=== PATIENT | male | born 1975 | race Two or more races ===

== ENCOUNTER 2024-12-09 11:33 | Inpatient (IN) | payer OTHER ==
[~2024-12-09] VITALS: Ht 170.2 cm; Wt 119.7 kg
[2024-12-09 12:18] VITALS: BP 224/124; PULSE 114; RESP 18; TEMP 98.6; O2SAT 97
--- NOTE | 2024-12-09 12:22 | ED.PDOC ---
HPI (NEURO) HPI Comments 48 y.o male presents to the ED for a chief complaint of left sided facial droop that started 3 days ago. Patient reports possible insect bite on his left side, states he developed pain then but woke up with drooping today. Patient denies any focal weakness, numbness sensation, chest pain or SOB. Upon ED arrival, patient's blood pressure measured 224/124. Patient has no history of HTN or any other illnesses. Chief Complaint: Left Sided Weakness Time Seen by MD: 12:05 Reviewed Notes: Nurses Notes, Medications, Allergies Information Source: Patient Mode of Arrival: Ambulatory Severity: Moderate Headache Severity: None Timing: Days (3) Duration: Since onset Onset: At rest Circumstances: Spontaneous Symptoms: None History of: None Associated Signs and Symptoms: Other Past Medical History PAST MEDICAL HISTORY: Denies Surgical History: Denies all surgeries Family History Family History: Family hx of DM, Family hx of Cancer Social History Smoker: Cigarettes Alcohol: Denies ETOH Use Drugs: Denies Drug Use Lives In: Home Constitutional: denies: chills, diaphoresis, fatigue, fever, malaise, sweats, weakness, others EENTM: denies: blurred vision, double vision, ear bleeding, ear discharge, ear drainage, ear pain, ear ringing, eye pain, eye redness, hearing loss, mouth pain, mouth swelling, nasal discharge, nose bleeding, nose congestion, nose pain, photophobia, tearing, throat pain, throat swelling, voice changes, others Respiratory: denies: cough, hemoptysis, orthopnea, SOB at rest, shortness of breath, SOB with excertion, stridor, wheezing, others Cardiovascular: denies: chest pain, dizzy spells, diaphoresis, Dyspnea on exertion, edema, irregular heart beat, left arm pain, lightheadedness, palpitations, PND, syncope, others Gastrointestinal: denies: abdomen distended, abdominal pain, blood streaked bowels, constipated, diarrhea, dysphagia, difficulty swallowing, hematemesis, melena, nausea, poor appetite, poor fluid intake, rectal bleeding, rectal pain, vomiting, others Genitourinary: denies: burning, dysuria, flank pain, frequency, hematuria, incontinence, penile discharge, penile sore, pain, testicle pain, testicle swelling, urgency, others Neurological: reports: others (left sided facial droop ); denies: dizziness, fainting, headache, left sided numbness, left sided weakness, numbness, paresthesia, pre-existing deficit, right sided numbness, right sided weakness, seizure, speech problems, tingling, tremors, weakness Musculoskeletal: denies: back pain, gout, joint pain, joint swelling, muscle pain, muscle stiffness, neck pain, others Integumetry: denies: bruises, change in color, change in hair/nails, dryness, laceration, lesions, lumps, rash, wounds, others Allergic/Immunocompromised: denies: Difficulty Healing, Frequent Infections, Hives, Itching, others Hematologic/Lymphatic: denies: anemia, blood clots, easy bleeding, easy bruising, swollen glands, others Endocrine: denies: excessive hunger, excessive sweating, excessive thirst, excessive urination, flushing, intolerance to cold, intolerance to heat, unexplained weight gain, unexplained weight loss, others Psychiatric: denies: anxiety, bipolar disorder, depression, hopeless, panic disorder, schizophrenia, sleepless, suicidal, others All Other Systems: Reviewed and Negative Physical Exam General Appearance: Moderate Distress HEENT: Normal ENT Inspection, Pharynx Normal, TMs Normal Neck: Full Range of Motion, Non-Tender, Normal, Normal Inspection Respiratory: Chest Non-Tender, Lungs Clear, No Accessory Muscle Use, No Respiratory Distress, Normal Breath Sounds Cardiovascular: No Edema, No JVD, No Murmur, No Gallop, Normal Peripheral Pulses, Regular Rate/Rhythm Breast Exam: Deferred Gastrointestinal: No Organomegaly, Non Tender, No Pulsatile Mass, Normal Bowel Sounds, Soft Genitalia: Deferred Pelvic: Deferred Rectal: Deferred Extremities: No calf tenderness, Normal capillary refill, Normal inspection, Normal range of motion, Non-tender, No pedal edema Musculoskeletal : Apperance: Normal Neurologic: Alert, Facial Droop (Left-sided facial droop), Normal Affect, Normal Mood, No Sensory Deficits Cerebellar Function: Normal Reflexes: Normal Skin: Dry, Normal Color, Warm Lymphatic: No Adenopathy Was a procedure done? Was a procedure done?: No Differential Diagnosis (SZ) CVA: Bernabe's Palsy, CVA, Electrolyte Imbalance, Encephalopathy, TIA X-Ray, Labs, Meds, VS Vital Signs Date Time Temp Pulse Resp B/P (MAP) Pulse Ox O2 Delivery O2 Flow Rate FiO2 7/7/25 13:07 224/142 12/09/24 12:18 98.6 114 18 224/124 (157) 97 98.6 Lab Test 12/09/24 14:04 12/09/24 13:20 Range/Units Urine Color Pending Urine Clarity Pending Urine pH Pending Urine Specific [place] Pending Urine Protein Pending Urine Ketones Pending Urine Blood Pending Urine Nitrite Pending Urine Bilirubin Pending Urine Urobilinogen Pending Urine Leukocyte Esterase Pending Urine RBC Pending Urine Microscopic WBC Pending Urine Squamous Epithelial Cells Pending Urine Bacteria Pending Urine Glucose Pending White Blood Count 12.7 H 4.4-10.8 10^3/uL Red Blood Count 6.27 H 4.5-5.90 10^6/uL Hemoglobin 18.3 H 13.5-17.5 g/dL Hematocrit 53.0 41.0-53.0 % Mean Corpuscular Volume 84.5 80.0-100.0 fL Mean Corpuscular Hemoglobin 29.1 28.0-32.0 pg Mean Corpuscular Hemoglobin Concent 34.5 32.0-36.0 g/dL Red Cell Distribution Width 13.1 11.8-14.3 % Platelet Count 338 140-450 10^3/uL Mean Platelet Volume 7.6 6.9-10.8 fL Neutrophils (%) (Auto) 69.4 37.0-80.0 % Lymphocytes (%) (Auto) 23.2 10.0-50.0 % Monocytes (%) (Auto) 5.5 0.0-12.0 % Eosinophils (%) (Auto) 1.2 0.0-7.0 % Basophils (%) (Auto) 0.7 0.0-2.0 % Neutrophils # (Auto) 8.8 H 1.6-8.6 10 ^3/uL Lymphocytes # (Auto) 2.9 0.4-5.4 10 ^3/uL Monocytes # (Auto) 0.7 0-1.3 10 ^3/uL Eosinophils # (Auto) 0.2 0-0.8 10 ^3/uL Basophils # (Auto) 0.1 0-0.2 10 ^3/uL Nucleated Red Blood Cells 0.1 % Sodium Level 141 136-145 mmol/L Potassium Level 3.4 L 3.5-5.1 mmol/L Chloride Level 103 98-107 mmol/L Carbon Dioxide Level 29 20-31 mmol/L Anion Gap 9 5-15 Blood Urea Nitrogen 12 9-23 mg/dL Creatinine 1.21 0.700-1.30 mg/dL Glomerular Filtration Rate Calc 74 >90 mL/min BUN/Creatinine Ratio 9.9 L 10.0-20.0 Serum Glucose 122 H 74-106 mg/dL Calcium Level 9.9 8.7-10.4 mg/dL Current Medications Medications (Trade) Dose Ordered Sig/Beverly Route Start Time Stop Time Status Last Admin Clonidine HCl (Catapres Tablet) 0.2 mg ONCE ONCE PO 12/09/24 12:15 12/09/24 12:16 DC 12/09/24 13:07 CLINICAL INFORMATION: Male; left facial droop. IMPRESSION: No CT evidence of acute intracranial abnormality. The patient's CBC shows an elevated white blood cell count of 12.7 The rest of the CBC is within normal limits The chemistry panel is within normal limits. The patient was given clonidine 0.2 mg by mouth for the elevated blood pressure The patient is still having increased blood pressure so the patient is now being given hydralazine IV push The patient is a [facility] patient We did contact the because the patient is still symptomatic There has been given us authorization to admit the patient The authorization #[id number] The diagnosis is hypertensive crisis Images Reviewed?: Images reviewed and evaluated by me Time of 1ST Reevaluation: 12:22 Reevaluation 1ST: Unchanged Patient Education/Counseling: Diagnosis, Treatment, Prognosis Family Education/Counseling: No Family Present Departure 1 Departure Time of Disposition: 15:40 Impression: Primary Impression: Hypertensive crisis Additional Impression: Bernabe's palsy Disposition: 09 ADMITTED INPATIENT Admit to: [facility] Condition: Fair Critical Care Note Critical Care Time?: Yes (45 min-critical care time only) Stability Stability form required: Yes Unstable for transfer: Telemetry monitoring (Telemetry monitoring required), ED Physician Assesment (Clinical assesment) Heart Score Heart Score: Heart Score Response (Comments) Value History Moderate Suspicious 1 EKG Normal 0 Age 45-64 1 Risk Factors No known risk factors 0 Troponin N/A 0 Total 2 I personally scribed for DAGOBERTO SOLORZANO MD ([email or web address]) on 12/09/24 at 12:22. Electronically submitted by Sandee Calderon ([facility]). I personally scribed for DAGOBERTO SOLORZANO MD ([email or web address]) on 12/09/24 at 13:05. Electronically submitted by Sandee Calderon ([facility]). DAGOBERTO SOLORZANO MD Dec 09, 2024 12:22
--- NOTE | 2024-12-09 12:47 | DVH ---
CLINICAL INFORMATION: Male; left facial droop. TECHNIQUE: Axial imaging was obtained through the brain without contrast. Coronal and sagittal reform atted images were obtained, reviewed, and stored. Images were reviewed in brain and bone windows. Al l CT scans at this medical facility are performed using dose modulation techniques as appropriate to a performed exam including the following: Automated exposure control was utilized; adjustment of the MA and/or KV according to patient size; and use of iterative reconstruction technique. CTDIvol = 61.5 mGy DLP = 1107.4 mGy-cm COMPARISON: None FINDINGS: There is no acute intracranial hemorrhage. No mass effect or midline shift. The ventricles and sulci are within normal limits in size for age. Basal cisterns are patent. The calvarium is unre markable. Paranasal sinuses and mastoid air cells are clear. IMPRESSION: No CT evidence of acute intracranial abnormality.
[2024-12-09 13:30] LABS: Hematocrit 53.0 % (41.0-53.0); Hemoglobin 18.3 g/dL (13.5-17.5); Mean Corpuscular Hemoglobin 29.1 pg (28.0-32.0); Mean Corpuscular Volume 84.5 fL (80.0-100.0); Nucleated Red Blood Cells % 0.1 %
[2024-12-09 13:45] LABS: Chloride 103 mmol/L (98-107); Sodium 141 mmol/L (136-145)
[2024-12-09 13:46] LABS: Anion Gap 9 (5-15); Calcium 9.9 mg/dL (8.7-10.4); Carbon Dioxide 29 mmol/L (20-31)
[2024-12-09 13:48] LABS: Potassium 3.4 mmol/L (3.5-5.1)
[2024-12-09 13:51] LABS: BUN/Creatinine Ratio 9.9 (10.0-20.0); Blood Urea Nitrogen 12 mg/dL (9-23)
[2024-12-09 13:53] LABS: Glucose 122 mg/dL (74-106)
[2024-12-09] MEDS ORDERED: methylPREDNISolone SOD SUCC 125 MG/2 ML VL IV ONE (14:15)
[2024-12-09] MEDS ORDERED: hydrALAZINE HCL 20 MG/ML VL IV ONE (14:15)
[2024-12-09 15:41] LABS: Urine Protein, UAD 1+ (Negative)
[2024-12-09] MEDS ORDERED: ONDANSETRON HCL 4 MG/2 ML VIAL IV PRN (17:30)
[2024-12-09] MEDS ORDERED: ACETAMINOPHEN 325 MG TAB PO PRN (17:30)
[2024-12-09] MEDS ORDERED: HYDROcodone-ACET 5/325MG TAB PO PRN (17:30)
[2024-12-09] MEDS ORDERED: cefTRIAXone 1GM/50ML D5W 50 ML IV ONE (17:30)
[2024-12-09] MEDS ORDERED: MORPHINE SULFATE INJ 2 MG/ml SYRG IV PRN ×2 (17:30)
[2024-12-09] MEDS ORDERED: NITROGLYCERIN 0.4 MG SL TAB SL PRN (17:30)
[2024-12-09] MEDS ORDERED: DOCUSATE SOD 100 MG CAP PO PRN (17:30)
--- NOTE | 2024-12-09 17:34 | DVHHP2 ---
History of Present Illness Reason for Visit: Hypertensive crisis History of Present Illness The patient is a 48-year-old male who denies past medical history presented to [facility] ED with complaint of left-sided facial droops for the past 3 days. Patient reports could be possible insect bite, he developed pain and woke with facial drooping today that prompted this visit. Patient was seen and evaluated in the ED with hypertensive crisis blood pressure 224/124, heart rate 114, temperature 98.6, O2 saturation 97% on room air, laboratory data shows WBC 12.7, platelets 338, sodium 141, potassium 3.4, BUN 12, creatinine 1.21, glucose 122, calcium 9.9. Head CT showed no acute intracranial abnormality. Patient was given IV hydralazine, please see medication orders section in the computer. On my assessment, patient denies chest pain, no headache, no dizziness, no facial weakness, numbness sensation, no shortness of breath, no nausea, no vomiting, no fever, no chills. Patient was admitted for further evaluation and medical management. Past Medical History Denies past medical history Past Surgical History Denies all surgeries Family History Reviewed, noncontributory to the management of this case. Past Social History Patient lives at home, smokes cigarettes, denies alcohol or illicit drugs abuse. Review of Systems Constitutional: No: Fever, Chills, Sweats, Weakness, Malaise, Other Eyes: No: Pain, Vision change, Conjunctivae inflammation, Eyelid inflammation, Other, Redness ENT: No: Ear pain, Ear discharge, Nose pain, Nose discharge, Nose congestion, Mouth pain, Mouth swelling, Throat pain, Throat swelling, Other Respiratory: No: Cough, Dry, Shortness of breath, SOB with excertion, Wheezing, Hemoptysis, Pleuritic Pain, Sputum, Wheezing, Other Cardiovascular: Other (Hypertension); No: Chest Pain, Palpitations, Orthopnea, Paroxysmal Noc. Dyspnea, Edema, Lt Headedness Gastrointestinal: No: Nausea, Vomiting, Abdominal Pain, Diarrhea, Constipation, Melena, Hematochezia, Other Genitourinary: No Dysuria, No Frequency, No Incontinence, No Hematuria, No Retention, No Other Musculoskeletal: No: other, neck pain, shoulder pain, arm pain, back pain, hand pain, leg pain, foot pain Skin: No: Rash, Lesions, Jaundice, Bruising, Other Neurological: Other (left sided facial droop.); No: Weakness, Numbness, Incoordination, Change in speech, Confusion, Seizures Allergies: Coded Allergies: NO KNOWN ALLERGIES (Unverified , 12/09/24) Exam Vital Signs Vital Signs Date Time Temp Pulse Resp B/P (MAP) Pulse Ox O2 Delivery O2 Flow Rate FiO2 12/09/24 13:07 224/142 12/09/24 12:18 98.6 114 18 97 98.6 General Appearance: Alert, Oriented X3, Cooperative, No acute distress HEENT: Atraumatic, PERRLA, EOMI, Mucous membr. moist/pink Respiratory: Clear to auscultation, Normal air movement Cardiovascular: Regular rate, Normal S1, Normal S2, No murmurs Abdominal: Normal bowel sounds, Soft, No tenderness, No hepatospenomegaly, No masses Extremities: No clubbing, No cyanosis, No edema, Normal pulses, No tenderness/swelling Skin: No rashes, No breakdown, No significant lesion Neuro: Normal gait, Normal speech, Strength at 5/5 X4 ext, Normal tone, Sensation intact, Cranial nerves 3-12 NL, Reflexes 2+ Psych/Mental Status: Mood NL Labs/Xrays Labs Test 12/09/24 14:04 12/09/24 13:20 Range/Units Urine Color Yellow Yellow Urine Clarity Turbid H Clear Urine pH 6.0 5.0-9.0 Urine Specific [place] 1.029 1.001-1.035 Urine Protein 1+ H Negative Urine Ketones Negative Negative Urine Blood Negative Negative /uL Urine Nitrite Negative Negative Urine Bilirubin Negative Negative Urine Urobilinogen Normal Negative mg/dL Urine Leukocyte Esterase Negative Negative /uL Urine RBC 19 0 - 3 /hpf Urine Microscopic WBC 4 H 0-3 /HPF Urine Squamous Epithelial Cells Few <5 /hpf Urine Bacteria Few H None Seen /hpf Urine Mucus Few None Seen Urine Glucose 2+ H Normal mg/dL White Blood Count 12.7 H 4.4-10.8 10^3/uL Red Blood Count 6.27 H 4.5-5.90 10^6/uL Hemoglobin 18.3 H 13.5-17.5 g/dL Hematocrit 53.0 41.0-53.0 % Mean Corpuscular Volume 84.5 80.0-100.0 fL Mean Corpuscular Hemoglobin 29.1 28.0-32.0 pg Mean Corpuscular Hemoglobin Concent 34.5 32.0-36.0 g/dL Red Cell Distribution Width 13.1 11.8-14.3 % Platelet Count 338 140-450 10^3/uL Mean Platelet Volume 7.6 6.9-10.8 fL Neutrophils (%) (Auto) 69.4 37.0-80.0 % Lymphocytes (%) (Auto) 23.2 10.0-50.0 % Monocytes (%) (Auto) 5.5 0.0-12.0 % Eosinophils (%) (Auto) 1.2 0.0-7.0 % Basophils (%) (Auto) 0.7 0.0-2.0 % Neutrophils # (Auto) 8.8 H 1.6-8.6 10 ^3/uL Lymphocytes # (Auto) 2.9 0.4-5.4 10 ^3/uL Monocytes # (Auto) 0.7 0-1.3 10 ^3/uL Eosinophils # (Auto) 0.2 0-0.8 10 ^3/uL Basophils # (Auto) 0.1 0-0.2 10 ^3/uL Nucleated Red Blood Cells 0.1 % Sodium Level 141 136-145 mmol/L Potassium Level 3.4 L 3.5-5.1 mmol/L Chloride Level 103 98-107 mmol/L Carbon Dioxide Level 29 20-31 mmol/L Anion Gap 9 5-15 Blood Urea Nitrogen 12 9-23 mg/dL Creatinine 1.21 0.700-1.30 mg/dL Glomerular Filtration Rate Calc 74 >90 mL/min BUN/Creatinine Ratio 9.9 L 10.0-20.0 Serum Glucose 122 H 74-106 mg/dL Calcium Level 9.9 8.7-10.4 mg/dL PATIENT: JAYESH CAMARENA ACCT: [id number] UNIT: [id number] : 1975 LOC: ER ROOM / BED: / AGE / SEX: 48 / M ADM STATUS: REG ER SERVICE 1212 ORDERING PHYSICIAN: DAGOBERTO SOLORZANO MD PROCEDURE(s): HWOCT - HEAD WITHOUT CONTRAST REASON: left facial droop ORDER NUMBER(s): [id number], ACCESSION NUMBER(s): [id number] CLINICAL INFORMATION: Male; left facial droop. TECHNIQUE: Axial imaging was obtained through the brain without contrast. Coronal and sagittal reformatted images were obtained, reviewed, and stored. Images were reviewed in brain and bone windows. All CT scans at this medical facility are performed using dose modulation techniques as appropriate to a per formed exam including the following: Automated exposure control was utilized; adjustment of the MA and/or KV according to patient size; and use of iterative reconstruction technique. CTDIvol = 61.5 mGy DLP = 1107.4 mGy-cm COMPARISON: None FINDINGS: There is no acute intracranial hemorrhage. No mass effect or midline shift. The ventricles and sulci are within normal limits in size for age. Basal cisterns are patent. The calvarium is unremarkable. Paranasal sinuses and mastoid air cells are clear. IMPRESSION: No CT evidence of acute intracranial abnormality. Assessment/Plan Assessment/Plan Hypertensive crisis Hypokalemia Bernabe's palsy Leukocytosis, unspecified Plan 1. Admit to telemetry units 2. Breathing treatment 3. Pain control management 4. IV antibiotic management 5. Management of fluids and electrolytes 6. Consultation for hospitalist 7. Diagnostic test head CT 8. DVT prophylaxis on SCDs 9. Repeat labs CBC, CMP in a.m. 10. Home medication reviewed and reconciled 11. Continue with current medical management 12. Treatment plan discussed with patient and RN. Patient verbalized understanding. Plan discussed with: Patient, Other (RN) My Orders Orders - KATHY BANEGAS DNP Procedure Category Date Status Time Metoprolol Tartrate PHA 12/09/24 Transmitted Tablet (Lopressor Ta 22:00 Amlodipine Tablet PHA 12/09/24 Transmitted (Norvasc Tablet) 17:30 Amlodipine Tablet PHA 12/10/24 Transmitted (Norvasc Tablet) 10:00 Clonidine Hcl Tablet PHA 12/09/24 Transmitted (Catapres Tablet) 17:30 Ceftriaxone Ivpb PHA 12/10/24 Transmitted Rocephin 09:00 Ceftriaxone Ivpb PHA 12/09/24 Transmitted Rocephin 17:30 Admit ADMIT 12/09/24 Transmitted 17:28 Allergies BHAKTI 12/09/24 Transmitted 17:28 Code Status CODE 12/09/24 Transmitted 17:28 Sodium Chloride Lock PHA 12/09/24 Transmitted (Saline Lock Ns) 22:00 Oxygen Per Hour RT 12/09/24 Transmitted 17:28 Hydrocodone-Acet PHA 12/09/24 Transmitted 5/325mg Tab ([place] 17:30 Ondansetron Hcl [facility] 12/09/24 Transmitted (Zofran) 17:30 Docusate Sodium [facility] 12/09/24 Transmitted Capsule (Colace 17:30 Complete Blood Count LAB 12/10/24 Verified 04:00 Comprehensive LAB 12/10/24 Verified Metabolic Panel 04:00 Cardiac DIET 12/09/24 Transmitted Diet-2gna,Lofat,Lochol Dinner Condition: Serious [facility] 12/09/24 Transmitted 17:28 Acetaminophen Tablet [facility] 12/09/24 Transmitted (Tylenol Tablet) 17:30 Bedrest With Bathroom [facility] 12/09/24 Transmitted Privileg 17:28 Maintain Bed Rest [facility] 12/09/24 Transmitted 17:28 Morphine Sulfate [facility] 12/09/24 Transmitted Injection 17:30 Sequential [facility] 12/09/24 Transmitted Compression Device Nitroglycerin [facility] 12/09/24 Transmitted Sublingual (Ntrostat 17:30 Morphine Sulfate [facility] 12/09/24 Transmitted Injection 17:30 Stat Ekg For Chest [facility] 12/09/24 Transmitted Pain 17:28 Notify Md Of Changes [facility] 12/09/24 Transmitted From Base 17:28 Fitter Helper For [facility] 12/09/24 Transmitted 24 Hours 17:28 Emergency Dysrhythmia [facility] 12/09/24 Transmitted Protocol 17:28 Rhythm Strips Once [facility] 12/09/24 Transmitted Every Shift 17:28 Oxygen By Nasal 12/09/24 Transmitted Cannula 17:28 Problem List: (1) Hypertensive crisis (2) Hypokalemia (3) Bernabe's palsy (4) Leukocytosis, unspecified Date of Service: Dec 09, 2024 Billing Provider: KATHY BANEGAS DNP Common Visit Codes: [id number] INP/OBS CARE (HIGH) KATHY BANEGAS DNP Dec 09, 2024 17:34
[2024-12-09] MEDS ORDERED: POTASSIUM CHL 20 Meq TABLET PO ONE (18:30)
[2024-12-09] MEDS ORDERED: METOPROLOL TARTRATE 50 MG TAB PO SCH (22:00)
[2024-12-09] MEDS ORDERED: FAMOTIDINE (10MG/ML) 2ML VL IV SCH (22:00)
[2024-12-09] MEDS ORDERED: methylPREDNISolone SOD SUCC 40 MG/ML VL IV SCH (22:00)
[2024-12-09] MEDS ORDERED: SODIUM CHLOR 0.9% PF (SALINE LOCK) 10ML VIAL/SYR IV SCH (22:00)
[2024-12-10] MEDS ORDERED: cefTRIAXone 1GM/50ML D5W 50 ML IV SCH (09:00)
== END 2024-12-09 19:13 | disposition left against medical advice (07) | DRG 74 ==
LOC: ER 11:33 → OVERFLOW 17:28
PROVIDERS: ADMIT Nurse Practitioner Family; ATTEND Nurse Practitioner Family
DX: G51.0 Bell's palsy (principal); I16.9 Hypertensive crisis, unspecified; D72.829 Elevated white blood cell count, unspecified; E87.6 Hypokalemia; F17.210 Nicotine dependence, cigarettes, uncomplicated; Z83.3 Family history of diabetes mellitus; Z53.29 Procedure and treatment not carried out because of patient's decision for other reasons
CPT/HCPCS: 36415; 70450; 80048; 81001; 85025; 99291; G0378